=== PATIENT | female | born 1950 | race Caucasian/White ===

== ENCOUNTER → 2017-11-27 07:15 | Outpatient (CLI) | payer MEDICARE, SELFPAY ==
--- NOTE | 2017-11-27 07:20 | CT_ITS ---
STUDY: LOW DOSE CT LUNG CANCER SCREENING REASON FOR EXAM: Female, 67 years old. Tobacco abuse x 50 years. Emphysema. RADIATION DOSAGE (If Supplied By Facility): CTDIvol = ( 3.02 ) mGy, DLP = ( 108.72 ) mGycm TECHNIQUE: No contrast was administered. Low dose technique was utilized (average mAS-38 and kVp 120). 1.25 mm axial source images with a slice interval of 1.25-mm were reconstructed in lung windows. Reformatted coronal and sagittal images were performed. Nodule measured using lung windows on PACS and/or independent workstation with automated measurement of minimum and maximum diameter. Nodule measurement reported as average diameter rounded to the nearest whole number. Growth is defined as an increase ins size of greater than 1.5 mm. COMPARISON: CTA chest: 03/18/2015 NODULES: Nodule: No worrisome lung nodule or mass identified. Emphysema: Moderately severe emphysematous changes are seen with hyperinflation of the lungs and parenchymal cystic lucencies. There are linear areas of fibrotic atelectasis present in upper lobes, lingula and left lower lobe. There is mild central bronchiectasis. Endobronchial lesion: None. Aorta: There is atherosclerotic calcification of the aortic arch and descending aorta. Mildly ectatic ascending aorta. Coronary arteries: Calcification of the left coronary artery. Heart: Normal in size. Pulmonary artery: Mildly prominent main pulmonary artery, suggestive of pulmonary hypertension. Mediastinal nodes: Multiple reactive mediastinal lymph nodes are present. Prevascular/left hilar calcified lymph nodes are present from old granulomatous process. Other chest and abdominal findings: Bilateral axillary benign lymph nodes. CT/Low Dose CT Lung Screening IMPRESSION: No evidence of pulmonary malignancy. Lung-RADS category 2 - Continue annual screening with LDCT in 12 months. Moderately severe pulmonary emphysema. Atherosclerotic vascular calcifications. IMPORTANT NOTES FOR USE: ACR Lung-RADS Version 1.0 Assessment Categories Release Date: October 09, 2013 Category: Coded 0-4 bases on nodule(s) with highest degree of suspicion. Negative screen is defined as categories 1 and 2; a positive screen is defined as categories 3 and 4. Category 3 and 4A nodules that are unchanged on interval CT should be coded as category 2, and individuals returned to screening in 12 months. Category 4X: Category 3 or 4 nodules with additional imaging findings that increase the suspicion of lung cancer, such as spiculation, GGN that doubles in size in 1 year, enlarged lymph notes, etc. Category Modifiers: S (significant finding unrelated to lung cancer) and C (prior history of treated lung cancer) may be added to the 0-4 Lung-RADS Electronically Signed: Johnathon Smith MD at 9:30 EDT Tel , Service support ,
== END ==
PROVIDERS: Family Provider Family Medicine; PCP Family Medicine; Visit Provider Internal Medicine Pulmonary Disease
DX: Z12.2 Encounter for screening for malignant neoplasm of respiratory organs (principal); Z87.891 Personal history of nicotine dependence
CPT/HCPCS: G0297

== ENCOUNTER → 2017-12-21 10:39 | Outpatient (CLI) | payer MEDICARE, SELFPAY ==
--- NOTE | 2017-12-21 10:56 | STE_ITS ---
Reason For Study: GRECO Stress Results Protocol: Dobutamine Stress Echocardiogram Maximum Predicted HR: 155 bpm Target HR: 132 bpm% Maximum Predicted HR: 92 % DurationHeart Rate Stage (mm:ss) (bpm) BPDos e BASELINE 87 145/99 DSE- 10 MCG 3:21 88 141/8210.00 DSE- 20 MCG 3:08 11 8 145/7720.00 DSE- 30 MCG 4:14 14 2 129/6530.00 RECOVERY 98 137/70 Stress Duration: 10:43 mm:ss Maximum Stress HR: 142 bpm Baseline Echocardiogram Findings Stress Echo Wall motion Data Resting WMIntermediate WMStress WM Resting Wall Motion Wall Motion Int. Wall Motion Stress All segments Normal. All segments Hyperkinetic. All segments Hyperkinetic. Ejection Fraction 60 %. Ejection Fraction 65 %. Ejection Fraction 75 %. Stress Results Arrhythmias: rare PAC/PVC during infusion and occasional PAC during recovery Stopped secondary to: target heart rate achieved. EKG Data Baseline ECG: NSR; diffuse ST segment abnormality. Peak infusion ECG: continued diffuse ST segment abnormality somewhat more prominent c/w baseline with gradual resolution towards baseline in recovery. Symptoms with Stress No c/o chest discomfort during infusion / recovery. Interpretation Summary Negative (adequate) Dobutamine Stress Echocardiogram Ordering Physician: Alicia Lowery Referring Physician: Alicia Lowery V Performed By: Noris Klein, MANDY, RVT
== END ==
PROVIDERS: Family Provider Family Medicine; PCP Family Medicine
DX: R06.09 Other forms of dyspnea (principal)
CPT/HCPCS: 93017; 93350; J7030; A4216

== ENCOUNTER → 2018-01-20 10:50 | Outpatient (CLI) | payer MEDICARE, SELFPAY ==
[2018-01-20 12:32] LABS: Creatinine, Serum 1.02 mg/dL (0.55-1.02); EST Glomerular Filtration Rate 58 mL/min (>60); Est Glom Filt Rate - Afr Amer 70 mL/min (>60)
== END ==
PROVIDERS: Family Provider Family Medicine; PCP Family Medicine; Visit Provider Urology
DX: R31.29 Other microscopic hematuria (principal); Z85.09 Personal history of malignant neoplasm of other digestive organs
CPT/HCPCS: 36415; 82565

== ENCOUNTER → 2018-01-31 17:15 | Outpatient (CLI) | payer MEDICARE, SELFPAY | PROVIDERS: Family Provider Family Medicine; PCP Family Medicine; Visit Provider Urology | DX: R31.29 Other microscopic hematuria (principal); Z85.51 Personal history of malignant neoplasm of bladder | CPT/HCPCS: 74178; Q9967 ==

== ENCOUNTER → 2018-11-28 12:36 | Outpatient (CLI) | payer MEDICARE, OTHER, SELFPAY ==
--- NOTE | 2018-11-28 12:42 | CT_ITS ---
STUDY: LOW DOSE CT LUNG CANCER SCREENING REASON FOR EXAM: Female, 68 years old. Screening, one pack per day smoker x50 years RADIATION DOSAGE (If Supplied By Facility): CTDIvol = ( 3.02 ) mGy, DLP = ( 115.13 ) mGycm TECHNIQUE: No contrast was administered. Low dose technique was utilized (average mAS-38 and kVp 120). 1.25 mm axial source images with a slice interval of 1.25-mm were reconstructed in lung windows. 2.5 mm axial source images with a slice interval of 2.5-mm were reconstructed in lung windows. 5.0 mm axial source images with a slice interval of 5.0-mm were reconstructed in soft tissue windows. Nodule measured using lung windows on PACS and/or independent workstation with automated measurement of minimum and maximum diameter. Nodule measurement reported as average diameter rounded to the nearest whole number. Growth is defined as an increase ins size of greater than 1.5 mm. COMPARISON: None. NODULES: Lung windows show hyperexpanded lungs with chronic interstitial fibrotic changes in both lung rosenthal. There is nonspecific pleural thickening but no suspicious noncalcified mass or nodule is noted. Total lung nodules (excluding granulomas): 0 Emphysema: Present Endobronchial lesion: Aorta: No evidence of aneurysm Mediastinal nodes: No suspicious mediastinal nodes. Other chest and abdominal findings: CT/Low Dose CT Lung Screening IMPRESSION: Lung-RADS category 2 - Continue annual screening with LDCT in 12 months. IMPORTANT NOTES FOR USE: ACR Lung-RADS Version 1.0 Assessment Categories Release Date: October 09, 2013 Category: Coded 0-4 bases on nodule(s) with highest degree of suspicion. Negative screen is defined as categories 1 and 2; a positive screen is defined as categories 3 and 4. Category 3 and 4A nodules that are unchanged on interval CT should be coded as category 2, and individuals returned to screening in 12 months. Category 4X: Category 3 or 4 nodules with additional imaging findings that increase the suspicion of lung cancer, such as spiculation, GGN that doubles in size in 1 year, enlarged lymph notes, etc. Category Modifiers: S (significant finding unrelated to lung cancer) and C (prior history of treated lung cancer) may be added to the 0-4 Lung-RADS Electronically Signed: Glenroy De La Cruz MD at 17:39 EDT , Service support ,
== END ==
PROVIDERS: Referring Provider Internal Medicine Pulmonary Disease; Visit Provider Internal Medicine Pulmonary Disease
DX: Z87.891 Personal history of nicotine dependence (principal)
CPT/HCPCS: G0297

== ENCOUNTER 2019-01-24 06:00 | Day surgery (SDC) | payer MEDICARE, OTHER, SELFPAY ==
--- NOTE | 2019-01-23 09:59 | EKG12_ITS ---
Test Reason : PRE-OP Blood Pressure : / mmHG Vent. Rate : 059 BPM Atrial Rate : 059 BPM P-R Int : 152 ms QRS Dur : 076 ms QT Int : 426 ms P-R-T Axes : 007 051 035 degrees QTc Int : 421 ms Sinus bradycardia Septal infarct , age undetermined Abnormal ECG Confirmed by IFRAH HOGUE, FLORENCE ([id number]), editor sound MONI FREY ([id number]) on 01/24/2019 12:56:28 PM Referred By: Samantha Sevilla Confirmed By:FLORENCE RG MD
[2019-01-23 10:56] LABS: Hematocrit 44.3 % (37-47); Hemoglobin 14.7 g/dL (12.0-15.0); Mean Corp Hgb Conc 33.2 g/dL (32-36); Mean Corpuscular Hgb 29.3 pg (27.0-32.0); Mean Corpuscular Volume 88.4 fL (81-99); Mean Platelet Vol. 10.4 fl (6.2-12.0); Platelet Count 252 K/mm3 (150-450); RBC Distribution Width CV 13.2 % (11.6-14.6); RBC Distribution Width SD 42.7 fl (35.1-43.9); Red Blood Count 5.01 M/mm3 (4.2-5.4); White Blood Count 5.8 K/mm3 (4.4-11.0)
[2019-01-23 11:27] LABS: Anion Gap 7 (5-15); BUN 17 mg/dL (7-18); BUN/Creat Ratio 18.5 RATIO (10-20); Calcium,Total 8.5 mg/dL (8.5-10.1); Chloride 108 mmol/L (98-107); Creatinine, Serum 0.92 mg/dL (0.55-1.02); EST Glomerular Filtration Rate 65 mL/min (>60); Est Glom Filt Rate - Afr Amer 78 mL/min (>60); Glucose 98 mg/dL (74-106); Potassium 4.2 mmol/L (3.5-5.1); Sodium Level 140 mmol/L (136-145)
[2019-01-24 06:26] VITALS: BP 134/65; PULSE 59; RESP 14; TEMP 36.4; O2SAT 92; BMI 26.3
--- NOTE | 2019-01-24 07:18 | PCM.OPRPT ---
Problem List (1) EVETTE (stress urinary incontinence, female) Status: Acute Report of Operation Date of Procedure: 01/24/19 Pre-Operative Diagnosis: stress urinary incontinence Post-Operative Diagnosis: same Surgery/Procedure Performed:: Altis midurethral sling, cystoscopy Description of Surgical Findings:: Sling was inserted without difficulty or immediate complication. Type of Anesthesia:: General Special Medications: Ancef Estimated Blood Loss (mL): 5cc Description of Procedure: The patient is a 68-year-old female who underwent evaluation in the office for stress urinary incontinence. After discussing all the risks benefits and alternatives, informed consent was obtained for mid urethral sling insertion under anesthesia. Was taken in the operating room and placed on the operating room table. Anesthesia monitored the head, neck, airway, IV access and vital signs throughout the case. Once anesthesia was appropriately administered the patient was placed into dorsal lithotomy in Trendelenburg position. She was prepped and draped in usual sterile fashion. A 16 Croat[place] Lauren catheter was inserted into the urethra and the bladder was drained. The mid urethra was identified and injected submucosally with 1% lidocaine with epinephrine. A midline incision vertical in nature was made approximately 2 cm in length. Sharp and blunt dissection ensued until the periurethral spaces were opened bilaterally enough to accommodate the sling. Using the trochars the sling was inserted into the obturator complexes bilaterally with care being taken to avoid entry into the vaginal mucosa or the urethra. At this time the sling was positioned using the tensioning suture and a right angle clamp. The mesh lay flat against the urethra without tension. The vaginal mucosa was closed in running interlocking fashion with 2-0 Vicryl. A cystourethroscopy was then performed at this degree lens. There were no foreign bodies identified within the bladder lumen or the urethra. Of note there were no bladder masses, areas of erythema or other abnormalities identified. The cystoscope was removed and the patient was awakened and taken to the recovery room in good condition. There were no complications during this procedure. Grafts/Implants Used: Altis sling - Complications none - Admit VTE Documentation VTE Present on Admission: Yes VTE Mechan Device Prophylaxis: SCD's VTE Pharm Prophylaxis ordered?: No Reason prophylaxis not ordered:: Treatment Not Indicated
--- NOTE | 2019-01-24 07:21 | PCM.DC.URO ---
Discharge Diet: No Restrictions Discharge Activity: May not drive while taking narcotic pain medications., May Shower, - - no tub bathing, no swimming, no exercise, no lifting over 5 pounds, no strenuous activity, nothing per vagina. ok to shower. Call your doctor if your incision/area has: Sudden Increased Bleeding, Increased Pain/ Swelling, Foul Smelling Discharge Call your doctor if you observe: Fever of 101 or Higher, Inability to urinate, Inability to have a bowel movement, Shortness of breath, Chest pain, Calf discomfort, Uncontrolled pain Allergies/Adverse Reactions: Allergies EBONI Inhibitors Allergy (Verified 01/17/19 08:46) Cough Medications to take at Discharge Amlodipine [Norvasc] 2.5 mg PO TID 11/28/14 Escitalopram Oxalate [Lexapro] 10 mg PO DAILY 11/28/14 Levocetirizine Dihydrochloride [Xyzal] 5 mg PO DAILY 11/28/14 Losartan/Hydrochlorothiazide [Hyzaar 100-12.5 Tablet] 0.5 tab PO QHS 11/28/14 Metoprolol Succinate 50 mg PO DAILY 11/28/14 Omeprazole [Prilosec] 1 cap PO DAILY 03/17/15 Albuterol IH (ProAir) [Proair Hfa] 1 - 2 puff INHALATION Q6H PRN PRN 01/17/19 Budesonide/Formoterol 160/4.5 [Symbicort 160/4.5 Mcg Inhaler (SP)] 2 puff INHALATION BID 01/17/19 Lorazepam [Ativan] 1 mg PO QHS 01/17/19 Ropinirole HCl [Requip] 2 tab PO QHS 01/17/19 Umeclidinium Wheeler Inhaler [Incruse Ellipta Inhaler] 1 puff IH DAILY 01/17/19 traZODone [Desyrel] 100 mg PO QHS 01/17/19 Cephalexin [Keflex] 500 mg PO Q12 3 Days #6 cap 01/24/19 Hydrocodone Bitart/Apap 5-325 [[place] 5MG-325MG] 1 tab PO Q4H PRN PRN 7 Days #20 tab 01/24/19 The following prescriptions were given: Cephalexin [Keflex] 500 mg PO Q12 3 Days #6 cap Prescription Printed Hydrocodone Bitart/Apap 5-325 [[place] 5MG-325MG] 1 tab PO Q4H PRN PRN 7 Days #20 tab PRN Reason: Pain Prescription Printed Orders to be completed after discharge: 12 Lead EKG [[facility]] Time Frame: 01/17/19, Facility: [facility], Location: Cardiovascular Services Chest PA and Lateral [RAD] Time Frame: 01/17/19, Facility: [facility], Location: Radiology, [facility] Basic Metabolic Profile (BMP) Time Frame: 01/17/19, Facility: [facility], Location: Laboratory CBC-Complete Blood Cnt No Diff Time Frame: 01/17/19, Facility: [facility], Location: Laboratory Primary Care Physician: Alicia Lowery DO [Primary Care Provider] - Test Results: Test results from this visit will be discussed in further detail at your follow-up appointment, if applicable. Please Follow Up With: Samantha Sevilla MD When: call office for appt to be seen in 2 weeks Proposed Discharge Date: 01/24/19
[2019-01-24] MEDS: Cefazolin 2 GM in 0.9% Normal Saline 100 ML IV (07:31)
[2019-01-24] MEDS: Lubricating Jelly 60 GM Tube 30 GM TOPICAL (07:52)
[2019-01-24 08:13] VITALS: BP 121/77; BP 134/65; PULSE 66; RESP 16; TEMP 36.2; O2SAT 94
[2019-01-24 08:16] VITALS: BP 113/68; BP 134/65; PULSE 58; RESP 16; O2SAT 92
[2019-01-24 08:30] VITALS: BP 134/65; BP 143/71; PULSE 64; RESP 16; O2SAT 94
[2019-01-24 08:37] VITALS: BP 127/65; BP 134/65; PULSE 68; RESP 16; TEMP 36.7; O2SAT 92
[2019-01-24 09:20] VITALS: BP 121/48; BP 134/65; PULSE 68; RESP 16; TEMP 36.4; O2SAT 94
== END 2019-01-24 09:20 | disposition home or self-care (01) ==
LOC: SDC 06:00 → AC 06:01
PROVIDERS: Referring Provider Urology; Visit Provider Urology
PROC: 0TJB8ZZ Inspection of Bladder, Via Natural or Artificial Opening Endoscopic (ICD-10-PCS; CPT 57288; principal; 2019-01-24 07:20)
DX: N39.3 Stress incontinence (female) (male) (principal); F41.9 Anxiety disorder, unspecified; Z85.51 Personal history of malignant neoplasm of bladder; K21.9 Gastro-esophageal reflux disease without esophagitis; Z79.899 Other long term (current) drug therapy; R00.1 Bradycardia, unspecified; I10 Essential (primary) hypertension; J44.9 Chronic obstructive pulmonary disease, unspecified; G25.81 Restless legs syndrome; F17.200 Nicotine dependence, unspecified, uncomplicated
CPT/HCPCS: 57288; 36415; 80048; 85027; 93005; J7120; J2405

== ENCOUNTER → 2019-09-18 08:34 | Outpatient (CLI) | payer MEDICARE, OTHER, SELFPAY ==
--- NOTE | 2019-09-18 08:48 | RAD_ITS ---
STUDY: AIR-CONTRAST UPPER GI SERIES. REASON FOR EXAM: Female, 69 years old. Upper abdomen pain with reflux for a long time per patient. No hx of abdomen surgery. FLUOROSCOPY TIME (if supplied): ( 45 seconds ) minutes/seconds. 20 images were obtained. TECHNIQUE: The patient ingested barium. Multiple images of the esophagus stomach and duodenum were obtained. COMPARISON: None. FINDINGS: The esophagus is unremarkable. There is no evidence of gastroesophageal reflux. No mass lesion is seen. The stomach and duodenum are unremarkable as well. There is no evidence of ulceration. No mass lesion is present. RAD/Upper GI Dual Contrast IMPRESSION: Unremarkable upper GI series. Electronically Signed: Dawson Cerna, at 10:27 EDT , Service support ,
== END ==
PROVIDERS: PCP Preventive Medicine Occupational Medicine; Referring Provider Internal Medicine Gastroenterology; Visit Provider Internal Medicine Gastroenterology
DX: R10.10 Upper abdominal pain, unspecified (principal)
CPT/HCPCS: 74246

== ENCOUNTER → 2020-03-05 | Outpatient (CLI) | payer MEDICARE, OTHER, SELFPAY ==
--- NOTE | 2020-03-05 16:59 | CT_ITS ---
STUDY: CTA OF THE BRAIN REASON FOR EXAM: Female, 69 years old. NEUROGENIC CLAUDICATION. FAMILY H/O ANEURYSM RADIATION DOSAGE (If Supplied By Facility): CTDIvol = ( 25.90 ) mGy, DLP = ( 1094.55 ) mGycm TECHNIQUE: CT angiography was performed with a multi-detector CT scanner. Data acquisition was obtained from the skull base through the vertex following intravenous administration of IV 100mL Isovue-370. MIP images were reconstructed from the axial data set. Post-processing of the angiographic images was performed, with multiplanar reformation and 3D reconstruction. Individualized dose optimization techniques were used for this CT. COMPARISON: None. FINDINGS: Normal bilateral petrous carotid arteries. There is calcified plaque formation of the right cavernous carotid artery, without a cross-sectional luminal stenosis. There is calcified plaque formation of the left cavernous carotid artery, without a cross-sectional luminal stenosis. There is hypoplastic development of the right A1 segment of the anterior cerebral arteries with an atretic but intact artery. Normal left A1 segments of the anterior cerebral artery. Normal intact anterior communicating artery (ACOM). Normal bilateral A2 segments of the anterior cerebral arteries. Normal right M1 and M2 segments of the middle cerebral arteries, with a normal M1 bifurcation. Normal left M1 and M2 segments of the middle cerebral arteries, with a normal M1 bifurcation. Normal right posterior communicating artery (PCOM). Normal left posterior communicating artery (PCOM). Normal bilateral vertebral arteries. Normal basilar artery with a normal basilar bifurcation. The visualized bilateral superior cerebellar (SCA) arteries are normal. Normal bilateral P1, P2 and visualized P3 segments of the posterior cerebral arteries. There is no demonstrated aneurysm of the upper [place] of [place]. There is no demonstrated abnormality of the visualized brain. CT/CTA Head W/WO Contrast IMPRESSION: No aneurysm is seen. Atherosclerotic nonstenotic plaque seen in the cavernous portions of the internal carotid arteries bilaterally. Electronically Signed: Dawson Cerna, at 10:05 EDT , Service support ,
--- NOTE | 2020-03-05 17:00 | CT_ITS ---
STUDY: CT LUMBAR SPINE WITHOUT CONTRAST REASON FOR EXAM: Female, 69 years old. NEUROGENIC CLAUDICATION RADIATION DOSAGE (If Supplied By Facility): CTDIvol = ( 14.88 ) mGy, DLP = ( 473.44 ) mGycm TECHNIQUE: The patient was scanned in a multi detector CT scanner. High resolution transaxial imaging was performed. Sagittal and coronal images were reconstructed. Individualized dose optimization techniques were used for this CT. COMPARISON: None FINDINGS: Normal lumbar lordosis. There is no substantial scoliosis. Normal vertebrae of the lumbar spine. L1-2: Normal endplates. Normal disc height and morphology. Normal bilateral facet joints. Normal central canal and bilateral lateral recesses. Normal bilateral intervertebral neural foramina. L2-3: Endplate spondylosis. Decreased disc height and small circumferential disc bulge. Degenerative changes of the bilateral facet joints. Mild narrowing of the central canal and bilateral intervertebral neural foramina. L3-4: Endplate spondylosis. Decreased disc height and small circumferential disc bulge. Degenerative changes of the bilateral facet joints. Mild narrowing of the central canal and bilateral intervertebral neural foramina. L4-5: Endplate spondylosis. Decreased disc height and small circumferential disc bulge. Degenerative changes of the bilateral facet joints. Mild narrowing of the central canal and bilateral intervertebral neural foramina. L5-S1: Normal endplates. Normal disc height and morphology. Normal bilateral facet joints. Normal central canal and bilateral lateral recesses. Normal bilateral intervertebral neural foramina. Moderate atherosclerotic disease involving the entire aorta and iliac arteries. There is a cyst in the anterior aspect of the right kidney measures 1.[address]/Spine Lumbar without Contrast IMPRESSION: Multilevel degenerative changes, as described above. Electronically Signed: Luis E Millan, at 5:46 EDT Tel , Service support ,
[2020-03-05 17:11] LABS: CREATININE FINGERSTICK 1.2 mg/dL (0.55-1.02)
== END | disposition home or self-care (01) ==
LOC: CT 16:58
PROVIDERS: PCP Preventive Medicine Occupational Medicine; Referring Provider Preventive Medicine Occupational Medicine; Visit Provider Preventive Medicine Occupational Medicine
DX: Z13.9 Encounter for screening, unspecified (principal); M48.062 Spinal stenosis, lumbar region with neurogenic claudication; Z82.49 Family history of ischemic heart disease and other diseases of the circulatory system
CPT/HCPCS: 70496; 72131; Q9967

== ENCOUNTER → 2020-04-15 16:45 | Outpatient (CLI) | payer MEDICARE, OTHER, SELFPAY ==
--- NOTE | 2020-04-15 16:46 | CT_ITS ---
STUDY: LOW DOSE CT LUNG CANCER SCREENING REASON FOR EXAM: Female, 69 years old. Long history of smoking. Screening for lung cancer. RADIATION DOSAGE (If Supplied By Facility): CTDIvol = ( 2.01 ) mGy, DLP = ( 69.72 ) mGycm TECHNIQUE: No contrast was administered. Low dose technique was utilized (average mAS-38 and kVp 120). 1.25 mm axial source images with a slice interval of 1.25-mm were reconstructed in lung windows. 2.5 mm axial source images with a slice interval of 2.5-mm were reconstructed in lung windows. 5.0 mm axial source images with a slice interval of 5.0-mm were reconstructed in soft tissue windows. Nodule measured using lung windows on PACS and/or independent workstation with automated measurement of minimum and maximum diameter. Nodule measurement reported as average diameter rounded to the nearest whole number. Growth is defined as an increase ins size of greater than 1.5 mm. COMPARISON: None. NODULES: There is hyperinflation of the lungs consistent with chronic obstructive lung disease (COPD). There is scarring in the right and left lung upper lobe. Moderate emphysematous changes are noted in both lungs more prominent in the upper lobes predominantly centrilobular type. There is no demonstrated pleural abnormality. Normal heart and pericardium. Normal mediastinum. Normal hilar regions. Normal unenhanced pulmonary arteries. Normal aorta arch and descending thoracic aorta. Normal osseous structures. There is no demonstrated abnormality of the visualized upper abdomen. CT/Low Dose CT Lung Screening IMPRESSION: Lung-RADS category 2. Benign findings. There is no evidence of malignancy. Recommendation: Routine screening CT scan in one year. IMPORTANT NOTES FOR USE: ACR Lung-RADS Version 1.0 Assessment Categories Release Date: October 09, 2013 Category: Coded 0-4 bases on nodule(s) with highest degree of suspicion. Negative screen is defined as categories 1 and 2; a positive screen is defined as categories 3 and 4. Category 3 and 4A nodules that are unchanged on interval CT should be coded as category 2, and individuals returned to screening in 12 months. Category 4X: Category 3 or 4 nodules with additional imaging findings that increase the suspicion of lung cancer, such as spiculation, GGN that doubles in size in 1 year, enlarged lymph notes, etc. Category Modifiers: S (significant finding unrelated to lung cancer) and C (prior history of treated lung cancer) may be added to the 0-4 Lung-RADS Electronically Signed: Luis E Millan, at 5:56 EST Tel , Service support ,
== END ==
PROVIDERS: PCP Preventive Medicine Occupational Medicine; Referring Provider Internal Medicine Pulmonary Disease; Visit Provider Internal Medicine Pulmonary Disease
DX: Z87.891 Personal history of nicotine dependence (principal); Z12.2 Encounter for screening for malignant neoplasm of respiratory organs
CPT/HCPCS: G0297

== ENCOUNTER → 2021-04-19 09:40 | Outpatient (CLI) | payer MEDICARE, OTHER, SELFPAY ==
--- NOTE | 2021-04-19 09:42 | CT_ITS ---
STUDY: LOW DOSE CT LUNG CANCER SCREENING REASON FOR EXAM: Female, 70 years old. TOBACCO USE RADIATION DOSAGE (If Supplied By Facility): CTDIvol = ( 3.02 ) mGy, DLP = ( 110.61 ) mGycm TECHNIQUE: No contrast was administered. Low dose technique was utilized (average mAS-38 and kVp 120). 1.25 mm axial source images with a slice interval of 1.25-mm were reconstructed in lung windows. 2.5 mm axial source images with a slice interval of 2.5-mm were reconstructed in lung windows. 5.0 mm axial source images with a slice interval of 5.0-mm were reconstructed in soft tissue windows. Nodule measured using lung windows on PACS and/or independent workstation with automated measurement of minimum and maximum diameter. Nodule measurement reported as average diameter rounded to the nearest whole number. Growth is defined as an increase ins size of greater than 1.5 mm. COMPARISON: 15 April 2020, 28 November 2018, 27 November 2017, 18 March 2015 Findings: There is a new solid irregular border 1.5 cm peripheral pleural contacting nodule in the right lower lobe posterior basal segment. Lungs are severely emphysematous with scattered scars. Airways are patent. Pleural surfaces are intact. Mediastinal contents are suboptimally evaluated on noncontrast exam. However, there is a stable precarinal 1.3 cm elongated ellipsoid lymph node. Coronary arteries are moderately diseased. CT/Low Dose CT Lung Screening IMPRESSION: 1. New 1.5 cm right lower lobe pulmonary nodule, high risk for lung cancer. 2. Lung RADS category 4B. 3. Further diagnostic assessment with CT PET is advised. IMPORTANT NOTES FOR USE: ACR Lung-RADS Version 1.1 Assessment Categories Release Date: 2018 Category: Coded 0-4 bases on nodule(s) with highest degree of suspicion. Negative screen is defined as categories 1 and 2; a positive screen is defined as categories 3 and 4. Category 3 and 4A nodules that are unchanged on interval CT should be coded as category 2, and individuals returned to screening in 12 months. Category 4X: Category 3 or 4 nodules with additional imaging findings that increase the suspicion of lung cancer, such as spiculation, GGN that doubles in size in 1 year, enlarged lymph notes, etc. Category Modifiers: S (significant finding unrelated to lung cancer) Electronically Signed: Awilda Watkins MD at 15:27 EDT Tel , Service support ,
== END ==
PROVIDERS: PCP Preventive Medicine Occupational Medicine; Visit Provider Internal Medicine Pulmonary Disease
DX: Z87.891 Personal history of nicotine dependence (principal)
CPT/HCPCS: 71271

== ENCOUNTER → 2021-04-29 16:53 | Outpatient (CLI) | payer MEDICARE, OTHER, SELFPAY ==
--- NOTE | 2021-04-29 16:30 | PET_ITS ---
EXAMINATION: FDG PET-CT INDICATIONS: A 70-year-old female with a history of pulmonary nodularity. COMPARISON EXAMINATION: CT of the chest report dated 04/19/21. INDEX LESION SIZE SUV INTERPRETATION Right upper lung-right upper lobe 0.9 Quantitative criteria for viable neoplasm are not fulfilled, sequential radiologic investigation recommended. NON-INDEX LESION SIZE SUV INTERPRETATION Right thoracic perihilum 2.0 Quantitative criteria for viable neoplasm are not fulfilled. TECHNIQUE: Following the intravenous administration of 17.1 mCi of F-18 deoxyglucose via the left antecubital fossa, multiplanar image acquisitions of the head, neck, chest, abdomen and pelvis to level of mid-thigh, lower extremities obtained at one hour post radiopharmaceutical administration contemporaneously interpreted with the current CT of the head, neck, chest, abdomen and pelvis to level of mid-thigh, lower extremities dated 04/29/[address] of the chest report dated 04/19/21 reveal: SERUM GLUCOSE LEVEL: 87 mg/dl. HEIGHT: 64 inches. WEIGHT: 160 lbs. FINDINGS: 1. There is mild increased tracer concentration observed in the right upper posterior lung-right upper lobe generating a calculated maximum standard uptake value of 0.9. Quantitative criteria for viable neoplasm are not fulfilled. 2. Mild increased FDG distribution is defined in the right thoracic perihilum generating a calculated maximum standard uptake value of 2.0. Quantitative criteria for neoplasm are not fulfilled. 3. There is no quantitative scintigraphic evidence of abnormal increased glucose metabolism within the context of the right lower posterior lung-right lower lobe to correlate with structural changes noted on review of CT of the thorax dated 04/29/21.Anatomic stability may be ensured in the right lower lobe nonglucose avid parenchymal density with repeat CT of the chest in 3-6 months if clinically indicated. (Rupesh, Seminars in Thoracic and Cardiovascular Surgery 14:292, 2002). 4. Normal physiologic distribution of the radiopharmaceutical is apparent in the hepatic (2.9) and splenic parenchyma, both renal units, bladder and visualized intestinal tract. The visualized portion of the cerebral cortex demonstrate symmetric and preserved glucose metabolism. Diffuse intestinal tract activity is noted throughout all four quadrants of the abdominal-pelvic retroperitoneum and mesentery consistent with normal physiologic distribution of the radiopharmaceutical. Prominent radiopharmaceutical concentration is observed in the left ventricular myocardium commensurate with the fed state. Prominent uptake is observed in the anterior aspect of the oral cavity in proximity to dental hardware placement most consistent with metallic reconstruction artifact. Pertinent CT findings are as follows. CHEST: Emphysematous changes noted in the bilateral upper lung zones. A linear density defined in the right upper posterolateral lung field is nonglucose avid. A pleural based right lower lobe noncalcified density reveals no evidence of facilitated FDG uptake. ABDOMEN AND PELVIS: Atherosclerotic calcification is defined in the abdominal aorta without evidence of dilatation, aneurysm formation. Pelvic arterial calcification is observed. Right and left inguinal soft tissue densities with fatty hilus are ametabolic. Calcification is manifest in the region of the right adnexa without evidence of increased tracer uptake. SKELETAL: Degenerative changes defined in the cervical, thoracic and lumbar spine demonstrate no evidence of glucose hypermetabolism. Diffuse demineralization is noted in the axial skeletal structures. PET/PET/CT Tumor Base -Thigh Init IMPRESSION: 1. NEGATIVE EXAMINATION. There is no definitive quantitative scintigraphic evidence of viable neoplasm. 2. Increased radiopharmaceutical concentration barely discernable in the right upper posterior lung-right upper lobe does not fulfill quantitative criteria for viable neoplasm. (Finley et al, Annals of Internal Medicine, 138:724, 2003). 3. Metabolic and/or anatomic stability may be ensured in the nonglucose avid right hemithorax pulmonary parenchymal abnormality with repeat FDG PET study and/or CT of the thorax in three-six months if clinically indicated. (Xiu, Journal of Nuclear Medicine 45:88, P2004 Rupesh, Seminars in Thoracic and Cardiovascular Surgery 14:292, 2002) 4. Facilitated uptake observed in the right thoracic perihilum does not fulfill quantitative criteria for malignant transformation. 5. The right lower posterior lung-right lower lobe parenchymal density demonstrates no evidence of abnormal increased FDG uptake as defined above. Morphologic stability may be ensured in this location with repeat CT of the chest in 3-6 months if clinically indicated. Electronic Signature Malik Damon D.O. Accurate Quantification of SUVs for this report are calculated using the exclusive [employer]. (U.S. Patent No. [id number]). Standardization and correction of the FDG SUV metric via [employer] technology allow for vendor non-specific objective quantitative examination comparison and optimization of the sensitivity and specificity of the FDG PET-CT examination. Electronically Signed: Malik Damon DO at 22:36 EST Tel , Service support ,
== END ==
PROVIDERS: PCP Preventive Medicine Occupational Medicine; Referring Provider Internal Medicine Pulmonary Disease; Visit Provider Internal Medicine Pulmonary Disease
DX: R91.1 Solitary pulmonary nodule (principal)
CPT/HCPCS: 78815; A9552

== ENCOUNTER 2021-07-30 12:53 | Outpatient (CLI) | payer MEDICARE, OTHER, SELFPAY ==
--- NOTE | 2021-07-30 12:57 | CT_ITS ---
STUDY: CT CHEST WITHOUT CONTRAST REASON FOR EXAM: Female, 71 years old. PULMONARY NODULE. History of bladder cancer. RADIATION DOSAGE (If Supplied By Facility): CTDIvol = ( 11.92 ) mGy, DLP = ( 455.58 ) mGycm TECHNIQUE: Transaxial imaging was performed without the administration of intravenous contrast material. Multiplanar coronal and sagittal images were reformatted. Individualized dose optimization techniques were used for this CT. COMPARISON: Comparison is made with prior study dated 04/19/2021. FINDINGS: Small benign appearing bilateral axillary lymph nodes. Hyperinflation. Emphysematous changes worse in the upper lobes. Stable scarring in the upper lobes and lingular segment of the left upper lobe and left lung base. The previously seen 1.5 cm peripheral pleural-based nodule in the right lower lobe is not seen at this time. There is no demonstrated pleural abnormality. There are calcifications of the coronary arteries. There are multiple small lymph nodes within the mediastinum, which are normal in size and morphology most compatible with reactive lymph hyperplasia. Normal hilar regions. Normal unenhanced pulmonary arteries. There is atherosclerotic calcification of the aortic arch with tortuosity and elongation of the aortic arch and descending thoracic aorta. There are multi-level degenerative changes of the thoracic spine. There is no demonstrated abnormality of the visualized upper abdomen. CT/Chest without Contrast IMPRESSION: Hyperinflation and emphysematous changes with scarring as described. The previously seen 1.5 cm irregular nodule in the posterior aspect of the right lower lobe is not seen at this time. Electronically Signed: Dawson Cerna MD at 15:20 EST ,
== END 2021-07-30 23:59 | disposition home or self-care (01) ==
LOC: CT 12:56
PROVIDERS: PCP Preventive Medicine Occupational Medicine; Referring Provider Internal Medicine Pulmonary Disease; Visit Provider Internal Medicine Pulmonary Disease
DX: R91.1 Solitary pulmonary nodule (principal)
CPT/HCPCS: 71250

== ENCOUNTER → 2022-07-15 | Outpatient (CLI) | payer MEDICARE, OTHER, SELFPAY ==
--- NOTE | 2022-07-15 15:34 | CT_ITS ---
EXAM: CT CHEST, LUNG CANCER SCREENING WITHOUT INTRAVENOUS CONTRAST CLINICAL INDICATION: 1.5 PPD SMOKER X 56 YEARS TECHNIQUE: Helically acquired images were obtained of the chest without intravenous contrast using low dose (LDCT) lung cancer screening protocol. This CT exam was performed using one or more of the following dose reduction techniques: automated exposure control, adjustment of the mA and/or kV according to patient size, and/or use of iterative reconstruction technique. This report was created using [employer] report generation technology. COMPARISON: 07/30/2021 FINDINGS: LUNGS AND PLEURAL SPACES: Scarring in the lung apices. There is a more nodular density seen in the right apex on today''s exam measuring 7 x 8 mm. This is slightly increased in size from the reference exam when it measured 5 x 8 mm. No mass. No pleural effusion or thickening. No pneumothorax. HEART: Unremarkable. Heart size is normal. No pericardial effusion. No significant coronary artery calcifications. MEDIASTINUM: Unremarkable. No mediastinal or hilar adenopathy. Esophagus is unremarkable. No hiatal hernia. THYROID: Unremarkable. No thyroid lesions. BONES/JOINTS: Unremarkable. No suspicious lytic or blastic abnormality. VASCULATURE: Unremarkable. Thoracic aorta is non-dilated. LYMPH NODES: Unremarkable. No enlarged lymph nodes. CT/Low Dose CT Lung Screening IMPRESSION: Noncalcified nodule in the right apex which is minimally increased in size on today''s examination. Lung-RADS score: 3 - Probably Benign. Recommend low-dose CT (LDCT) in 6 months. Electronically Signed: Brian Polk MD at 18:52 EST ,
== END | disposition home or self-care (01) ==
LOC: CT 15:33
PROVIDERS: PCP Preventive Medicine Occupational Medicine; Referring Provider Internal Medicine Pulmonary Disease; Visit Provider Internal Medicine Pulmonary Disease
DX: Z12.2 Encounter for screening for malignant neoplasm of respiratory organs (principal); R91.1 Solitary pulmonary nodule; Z87.891 Personal history of nicotine dependence
CPT/HCPCS: 71271

== ENCOUNTER → 2022-08-25 | Outpatient (CLI) | payer MEDICARE, OTHER, SELFPAY ==
--- NOTE | 2022-08-25 10:30 | PET_ITS ---
EXAMINATION: FDG PET/CT ? INDICATIONS: 72-year-old female with a history of pulmonary nodularity, presenting for restaging examination. ? COMPARISON EXAMINATION: FDG-PET study dated 03-29-2021. ? INDEX LESION SIZE SUV INTERPRETATION PERSISTENT Right upper lung field, right upper lobe 10.4 mm, compared to 7.0 mm 2.2 compared to 0.9, 04-29-2021 Histopathologic analysis is recommended, short-term reevaluation with FDG-PET CT imaging is recommended at minimum. ? NON-INDEX LESION ? ? ? PERSISTENT, NEW Bilateral thoracic perihilum ? 2.0, unchanged from exam dated 04-29-2021 Quantitative criteria for viable neoplasm are not fulfilled. ? TECHNIQUE: Following the intravenous administration of 12.74 mCi of F-18 deoxyglucose via the left hand, multiplanar image acquisitions of the neck, chest, abdomen and pelvis to the level of the midthigh, obtained at one-hour post radiopharmaceutical administration contemporaneously interpreted with FDG-PET study dated 03-29-2021 reveal: ? SERUM GLUCOSE LEVEL:? 113 mg/dL? HEIGHT:?? 64 inches WEIGHT:?? 164 pounds ? FINDINGS: ? HEAD/NECK:? There is no evidence of abnormal increased glucose metabolism in the pharyngeal mucosal space, parapharyngeal space, oropharynx, bilateral-lateral and anterior neck, hypopharynx and distribution of the larynx. ? The visualized portion of the cerebral cortical-subcortical structures demonstrate symmetric and preserved glucose metabolism. ? CHEST: Focal increased radiopharmaceutical concentration is redefined in the right upper posterior lung field, right upper lobe, generating a calculated standard uptake value of 2.2, compared to 0.9 defined on the prior examination dated 04-29-2021. The maximum axial diameter of the metabolic, morphologic abnormality is 10.4 mm, compared to 7.0 mm. FDG uptake is currently identified in the bilateral thoracic perihilum, generating a calculated standard uptake value of 2.0, unchanged compared to the examination dated 04-29-2021. There is visualized radiopharmaceutical concentration noted in the left ventricular myocardium, consistent with the fed state. ? CT of the chest demonstrates the following anatomic characteristics: Atherosclerotic calcification is defined in the thoracic aorta without evidence of dilatation, aneurysm formation. Coronary arterial calcification is observed. Bilateral axillary soft tissue densities demonstrate no evidence of increased tracer uptake. Mediastinal soft tissue is ametabolic. A calcified linear density noted in the left lower lung zone reveals no evidence of increased tracer uptake. ? ABDOMEN/PELVIS:? Normal physiologic distribution of the radiopharmaceutical is identified in the hepatic (3.3/2.9) and splenic parenchyma, both renal units, urinary bladder, and visualized intestinal tract. Diffuse intestinal tract is identified in all four quadrants of the abdomen and pelvis. ? CT of the abdomen and pelvis is remarkable for the following: Calcified granuloma formation is noted within the splenic parenchyma. Atherosclerotic calcification is defined in the abdominal aorta without evidence of dilatation, aneurysm formation. Abdominal-pelvic arterial calcification is observed. Colonic diverticulosis is encountered without evidence of diverticulitis. Calcification is noted in the region of the bilateral adnexa and uterus without evidence of increased tracer uptake. Inguinal soft tissue densities are ametabolic. ? SKELETAL:? There is no evidence of quantitatively significant enhanced glucose metabolism on meticulous inspection of the appendicular and axial skeletal structures. ? Degenerative changes defined in the thoracic and lumbar spine demonstrate no evidence of increased glucose metabolism. There are no sclerotic, mixed sclerotic-lytic, or primarily lytic changes defined in the axial skeletal structures with evidence of increased FDG uptake. ? PET/PET/CT Tumor Base -Thigh Init IMPRESSION: 1. The increase in radiopharmaceutical concentration redefined in the right upper posterior lung zone, right upper lobe, fulfills borderline quantitative criteria for viable neoplasm. Histopathologic analysis may be indicated. If a conservative measures approach is undertaken, repeat FDG-PET CT imaging in three months is recommended to ensure stability, involution. (Finley et al, Journal of Nuclear Medicine, 32:1, 1991). 2. Both redemonstrated and newly apparent foci of increased radiopharmaceutical concentration noted in the bilateral thoracic perihilum do not fulfill quantitative criteria for malignant transformation. (Suzan et al, Journal of Clinical Oncology, 16:2142, 1998). 3. Overall, compared to the prior FDG-PET study dated 04-29-2021, the increase in radiopharmaceutical concentration persistently defined in the right upper lung, right upper lobe, may warrant histopathologic evaluation. Short-term reevaluation with FDG-PET CT imaging is recommended at minimum. Electronic Signature Malik Black, D.O. Accurate Quantification of SUVs for this report are calculated using the exclusive [employer]. (U.S. Patent No. [id number] [id number] 983 B2 [phone] [place] patent [phone]). Standardization and correction of the FDG SUV metric via [employer] technology allow for vendor non-specific objective quantitative examination comparison and optimization of the sensitivity and specificity of the FDG PET-CT examination. Electronically Signed: Malik Damon, at 10:07 EDT ,
== END | disposition home or self-care (01) ==
LOC: ONC 10:09
PROVIDERS: PCP Preventive Medicine Occupational Medicine; Referring Provider Internal Medicine Pulmonary Disease; Visit Provider Internal Medicine Pulmonary Disease
DX: R91.1 Solitary pulmonary nodule (principal)
CPT/HCPCS: 78815; A9552

== ENCOUNTER → 2023-10-05 | Outpatient (CLI) | payer MEDICARE, OTHER, SELFPAY ==
--- NOTE | 2023-10-05 15:32 | MRI_ITS ---
STUDY: MRI LUMBAR SPINE WITHOUT CONTRAST REASON FOR EXAM: Female, 73 years old. LUMBAR ARTHROPATHY TECHNIQUE: Standardized fat and water weighted pulse sequences were obtained in the sagittal and axial planes. COMPARISON: CT of the lumbar spine dated March 05, 2020 FINDINGS: Normal lumbar lordosis. There is no substantial scoliosis. Normal conus medullaris that terminates at the T12-L1 level. No marrow edema or fracture or compression deformity is present. T12-L1: Mild anterior endplate spurring. Normal disc height, hydration and morphology. Normal bilateral facet joints. Normal central canal and bilateral lateral recesses. Normal bilateral intervertebral neural foramina. L1-2: Mild anterior endplate spurring. Normal disc height, hydration and morphology. Normal bilateral facet joints. Normal central canal and bilateral lateral recesses. Normal bilateral intervertebral neural foramina. L2-3: Normal endplates. Diffuse disc desiccation with mild asymmetric disc space narrowing. Minor anterior disc spur complex.. Normal bilateral facet joints. Normal central canal and bilateral lateral recesses. Normal bilateral intervertebral neural foramina. L3-4: Diffuse disc desiccation with mild to moderate disc space narrowing and posterior annular bulging. Mild endplate spurring. Slight retrolisthesis of less than 2 mm. Mild facet joint hypertrophy. Normal central canal and bilateral lateral recesses. Normal bilateral intervertebral neural foramina. L4-5: Normal endplates. Diffuse disc desiccation with no bulging or herniation of the disc. Preserved disc space. Mild facet joint hypertrophy. Normal central canal and bilateral lateral recesses. Normal bilateral intervertebral neural foramina. L5-S1: Normal endplates. Diffuse disc desiccation with mild posterior disc space narrowing and slight annular bulging. Moderate ligamenta flava and mild facet joint hypertrophy contributing to mild central canal stenosis. Normal bilateral intervertebral neural foramina. Normal visualized sacral ala. Normal visualized paraspinous soft tissue structures. MRI/Spine Lumbar (Routine) IMPRESSION: 1. Multilevel degenerative changes, as described above. Electronically Signed: Norm Garcia MD at 16:09 EDT ,
== END | disposition home or self-care (01) ==
LOC: MRI 15:22
PROVIDERS: PCP Preventive Medicine Occupational Medicine; Referring Provider Clinical Nurse Specialist Adult Health; Visit Provider Clinical Nurse Specialist Adult Health
DX: M47.816 Spondylosis without myelopathy or radiculopathy, lumbar region (principal)
CPT/HCPCS: 72148

== ENCOUNTER → 2023-12-08 | Outpatient (CLI) | payer MEDICARE, OTHER, SELFPAY ==
--- NOTE | 2023-12-08 16:02 | CT_ITS ---
STUDY: CTA CHEST REASON FOR EXAM: Female, 73 years old. Shortness of breath RADIATION DOSAGE (If Supplied By Facility): CTDIvol = ( 8.88 ) mGy, DLP = ( 381.51 ) mGycm TECHNIQUE: The examination was performed with the intravenous administration of IV 100mL [id number]-[id number]. Post-processing of the angiographic images was performed, with multiplanar reformation and 3D reconstruction. Individualized dose optimization techniques were used for this CT. COMPARISON: July 15, 2022 FINDINGS: Normal enhancement of the main pulmonary artery and right and left pulmonary arteries. Normal enhancement of the bilateral peripheral pulmonary arteries. There is no demonstrated pulmonary embolism. Mild atherosclerotic change of the aorta without evidence for aneurysm There is no demonstrated aortic dissection. Normal heart and pericardium. Mild coronary artery calcification. Small subcentimeter mediastinal nodes likely benign. Small calcified left suprahilar lymph node Normal visualized trachea and bronchi. The lungs are well expanded. Minor interstitial thickening in the upper lobes and pleural parenchymal scarring in the apices. Minimal subsegmental atelectasis at left base and right upper lobe Linear hyperattenuated density in the left upper lobe possibly representing post surgical changes. There is also calcified granuloma in the left upper lobe Normal pleura. Normal chest wall structures. Dorsal spine demonstrates degenerative change Normal visualized upper abdomen. CT/CTA Chest W/WO Contrast IMPRESSION: ASHD and minor chronic interstitial changes. Mild subsegmental atelectasis in the right upper lobe and left base. Old granulomatous disease in the left upper lobe No evidence for pulmonary embolus aortic aneurysm periaortic leak or dissection. Electronically Signed: Gary Hooker MD at 17:04 EDT ,
[2023-12-08 16:20] LABS: CREATININE FINGERSTICK < 1.0 mg/dL (0.55-1.02)
== END | disposition home or self-care (01) ==
LOC: CT 15:49
PROVIDERS: PCP Preventive Medicine Occupational Medicine; Referring Provider Internal Medicine Pulmonary Disease; Visit Provider Internal Medicine Pulmonary Disease
DX: R06.02 Shortness of breath (principal); R09.02 Hypoxemia
CPT/HCPCS: 71275; Q9967